=== PATIENT | female | born 1965 | race Caucasian/White ===

== ENCOUNTER 2018-10-08 02:39 | Inpatient (IN) | payer OTHER ==
--- NOTE | 2018-10-08 02:48 | EDPHY ---
H & P Time Seen by Provider: 10/08/18 02:48 HPI/ROS: HPI CHIEF COMPLAINT: Shortness of breath, cough. HISTORY OF PRESENT ILLNESS: 52-year-old female, homeless, presents emergency room with cough, shortness of breath and wheezing. Patient reports she has been sick for over 24 hr with worsening cough, as well as productive sputum yellow in nature. Denies fever. Denies chest pain. Does complain of shortness of breath. Also wheezing. She does smoke tobacco less than a pack per day. She reports that her shortness of breath and cough got worse today. This what prompted to come to the emergency room. Upon arrival to the emergency room is noted she has room air saturation of 85%. Past Medical History: Denies medical history Past Surgical History: Denies surgical history Social History: Smokes tobacco daily. Denies illicit drugs or alcohol. She is homeless. Family History: Noncontributory. ROS REVIEW OF SYSTEMS: 10 Systems were reviewed and negative with the exception of the elements mentioned in the history of present illness. Exam Constitutional nontoxic, triage nursing summary reviewed, vital signs reviewed , awake/alert. Hypoxic at triage 85%. Eyes normal conjunctivae and sclera, EOMI, PERRLA. HENT normal inspection, atraumatic, moist mucus membranes, no epistaxis, neck supple/ no meningismus, no raccoon eyes. Respiratory decreased breath sounds bilaterally, bronchitis ache breath sounds on exam, bronchitic cough also crackles at the right lung base. Cardiovascular rate normal, regular rhythm, no murmur, no edema, distal pulses normal. Gastrointestinal soft, non-tender, no rebound, no guarding, normal bowel sounds, no distension, no pulsatile mass. Genitourinary no CVA tenderness. Musculoskeletal no midline vertebral tenderness, full range of motion, no calf swelling, no tenderness of extremities, no meningismus, good pulses, neurovascularly intact. Skin pink, warm, & dry, no rash, skin atraumatic. Neurologic awake, alert and oriented x 3, AAOx3, moves all 4 extremities equally, motor intact, sensory intact, CN II-XII intact, normal cerebellar, normal vision, normal speech. Psychiatric normal mood/affect. Heme/Lymph/Immune no lymphadenopathy. Differential diagnosis includes but is not limited to: Pneumonia, viral syndrome, influenza, URI, ACS, atypical chest pain, pneumothorax, pneumonia, pulmonary embolism, aortic dissection, congestive heart failure, tumor, musculoskeletal pain, esophageal pain, GERD, peptic ulcer disease, pancreatitis Medical Decision Making: Plan for this patient two view chest x-ray, DuoNeb breathing treatment, IV fluid bolus, check influenza respiratory panel, basic blood work. Supplemental oxygen, equipment monitor phototypesetting. Re-evaluation: Chest x-ray reviewed shows cardiomegaly, haziness left lower lobe. Obscuring the left heart border. Concerning for possible pneumonia versus viral pneumonia Blood work reviewed. Vital signs reviewed she was hypoxic 85% upon arrival. She has a cough with productive sputum. She is afebrile here. Due to the hypoxia, and most likely infiltrate seen on chest x-ray will give IV Levaquin. Blood cultures ordered. Respiratory panel ordered. Plan for admission the hospital. 5:09 a.m. Consult the hospitalist service Dr. Walter. agrees to admit. Patient updated need for admission for hypoxia possible pneumonia. Source: Patient Constitutional: Initial Vital Signs Temperature (C) 36.7 C 10/08/18 02:50 Heart Rate 66 10/08/18 02:50 Respiratory Rate 16 10/08/18 02:50 Blood Pressure 114/64 10/08/18 02:50 O2 Sat (%) 85 L 10/08/18 02:50 O2 Delivery Mode Nasal Cannula O2 (L/minute) 2 Allergies/Adverse Reactions: Penicillins Allergy (Verified 10/08/18 02:49) Home Medications: Medication Instructions Recorded NK [No Known Home Meds] 10/08/18 Medical Decision Making - Data Points Laboratory Results: Laboratory Results 10/08/18 03:05 10/08/18 03:05 Microbiology Results: MICROBIOLOGY 10/08/18 03:05 Nasal, Sinus - Swab Respiratory Panel (PCR) - Final Influenza Virus Type A 2009 H1 Medications Given: Albuterol/Ipratropium (Duoneb) 3 ml IH Q6HRS PRN PRN Reason: Short of Breath/Dyspnea Stop: 04/06/19 07:22 Last Admin: 10/08/18 10:44 Dose: 3 ml Sodium Chloride (Ns) 1,000 mls @ 100 mls/hr IV CONT VERA Stop: 04/06/19 05:59 Last Admin: 10/09/18 01:34 Dose: 1,000 mls Lorazepam (Ativan Injection) 1 mg IVP Q4HRS PRN PRN Reason: Anxiety, Unable to Take PO Stop: 04/06/19 15:25 Last Admin: 10/08/18 15:41 Dose: 1 mg Oseltamivir Phosphate (Tamiflu) 75 mg PO BIDMEAL VERA Stop: 10/13/18 08:01 Last Admin: 10/08/18 17:51 Dose: 75 mg Prednisone (Prednisone) 60 mg PO DAILY VERA Stop: 04/06/19 08:59 Last Admin: 10/08/18 08:43 Dose: 60 mg Discontinued Medications Albuterol/Ipratropium (Duoneb) 3 ml IH EDNOW ONE Stop: 10/08/18 02:55 Last Admin: 10/08/18 03:23 Dose: 3 ml Sodium Chloride (Ns) 1,000 mls @ 0 mls/hr IV ONCE ONE; Wide Open PRN Reason: Protocol Stop: 10/08/18 02:55 Last Admin: 10/08/18 03:22 Dose: 1,000 mls Levofloxacin/Dextrose (Levaquin 750 Mg (Premix)) 150 mls @ 100 mls/hr IV EDNOW ONE PRN Reason: Protocol Stop: 10/08/18 05:45 Last Admin: 10/08/18 04:30 Dose: 150 mls Point of Care Test Results: Chemistry 10/08/18 03:41 POC Troponin I 0.01 ng/mL ng/mL (0.00-0.08) Departure - Departure Disposition: [facility] Inpatient Acute Clinical Impression: Hypoxia Pneumonia Qualifiers: Pneumonia type: due to unspecified organism Laterality: left Lung location: lower lobe of lung Qualified Code(s): J18.1 - Lobar pneumonia, unspecified organism Condition: Fair
[2018-10-08] MEDS ORDERED: NS 1,000 ML IV ONE (02:54)
[2018-10-08] MEDS ORDERED: IPRATROPIUM/ALBUTEROL 3 ML DEYVIAL IH ONE (02:54)
[2018-10-08 03:30] LABS: PLATELET COUNT 216 10^3/uL (150-400)
[2018-10-08 03:39] LABS: INR 0.95 (0.83-1.16); PROTIME(PATIENT) 12.9 SEC (12.0-15.0)
[2018-10-08] MEDS ORDERED: ACETAMINOPHEN 325 MG TAB PO PRN (05:46)
[2018-10-08] MEDS ORDERED: ONDANSETRON DISINTEGRATING 4 MG TAB PO PRN (05:46)
[2018-10-08] MEDS ORDERED: ONDANSETRON 4 MG/2 ML VIAL IVP PRN (05:46)
[2018-10-08] MEDS ORDERED: GUAIFENESIN/DM 10 ML UDCUP PO PRN (05:48)
[2018-10-08] MEDS: NS 1,000 ML IV SCH ×2 (06:35→15:46)
--- NOTE | 2018-10-08 07:40 | PDGENHP ---
History and Physical - Chief Complaint Shortness of breath and cough - History of Present Illness Source-patient provides history appears reliable. EMR was reviewed and case discussed with ED provider. HPI-this is a pleasant 52-year-old female with no significant past medical history presents emergency department today from a assisted with complaints shortness of breath, cough, wheezing. Patient reports that her symptoms started in the within the last 24 hr. She has pot productive cough of yellow sputum. She has had nasal congestion and sore throat. She doses some nausea without any vomiting. No diarrhea. One sick contact known. Patient denies any fevers but she has been experiencing some chills. She has been complaining of shortness of breath and some wheezing. She does smoke less than half pack per day for some time. History Information - Allergies/Home Medication List Allergies/Adverse Reactions: Penicillins Allergy (Verified 10/08/18 02:49) Home Medications: NK [No Known Home Meds] 10/08/18 [Last Taken Unknown] I have personally reviewed and updated: family history, medical history, social history, surgical history - Past Medical History no pertinent PMH - Surgical History Reports: no pertinent surgical hx - Family History Additional family history: Patient does not know family history. - Social History Smoking Status: Current every day smoker Tobacco Use: Cigarettes (Less than half a pack per day.) Alcohol Use: None Drug Use: None Additional social history: Patient is homeless and residing in a assisted. Cor status-full. Review of Systems Review of Systems: ROS: 10pt was reviewed & negative except for what was stated in HPI & below Constitutional: Reports: chills. Denies: fever EENMT: Reports: nose congestion, sore throat, other (Patient reports her voice is gone) Cardiac: Reports: no symptoms Respiratory: Reports: cough, shortness of breath, wheezing Gastrointestinal: Reports: abdominal distention, nausea. Denies: vomitting, abdominal pain, diarrhea Genitourinary: Reports: no symptoms Muscolosketal: Reports: no symptoms Skin: Reports: no symptoms Neurological: Reports: no symptoms Hematologic/Lymphatic: Reports: no symptoms Physical Exam Physical Exam: Selected Entries 10/08/18 02:50 Blood Pressure Automatic Method Heart Rate 66 Respiratory 16 Rate O2 Sat (%) 85 L Temperature (C) 36.7 C Blood Pressure 114/64 Mean Arterial 80 Pressure (MAP) O2 Delivery Room Air Mode Temperature Oral Source Temp Pulse Resp BP Pulse Ox 36.9 C 97 16 98/59 L 97 10/08/18 06:21 10/08/18 06:21 10/08/18 06:21 10/08/18 06:21 10/08/18 06:21 O2 (L/minute) 2 Constitutional: no apparent distress, unkempt (Disheveled), other (NAD. Patient is sitting up in bed awake. Appears quite fatigued and ill but nontoxic.) Eyes: PERRL (Slightly decreased reactivity light bilaterally but symmetric.), anicteric sclera, EOMI, No scleral injection Ears, Nose, Mouth, Throat: dry mucous membranes, other (No nasal discharge. Nasal cannula in place.) Cardiovascular: regular rate and rhythym, systolic murmur (2/6 systolic murmur.) , No pulses symmetric bilaterally (difficult to palpate pulses.), No edema Respiratory: no respiratory distress, reduced air movement, expiratory wheeze, inspiratory crackles, No clear to auscultation, No respiratory distress Gastrointestinal: soft, non-tender abdomen, no palpable masses, distension ( Distended but full.), other (Hypoactive bowel sounds.) Genitourinary: no bladder tenderness, No chandler in urethra Skin: warm, normal color, no rashes or abrasions, other (Patient with the abrasion to her left lateral medial metatarsal. She also has some discoloration on the 3rd toe of her right foot is bandaged. No open sore appreciated.) Musculoskeletal: No generalized weakness (Patient is able to sit up independently. She moves all extremities. Grossly normal muscular exam) Neurologic: AAOx3, sensation intact bilaterally, other (Nonfocal exam.), No facial droop Psychiatric: interacting appropriately, not encephalopathic, thought process linear, anxious, other (Patient does not use her voice. She reports that is hoarse. She mouth all her words. Occasional whisper. She is anxious. She is able to answer and ask questions with paper and pen.) Lab Data & Imaging Review 10/08/18 03:05 10/08/18 03:05 WBC 7.06 10^3/uL (3.80-9.50) 10/08/18 03:05 RBC 4.11 10^6/uL (4.18-5.33) L 10/08/18 03:05 Hgb 11.7 g/dL (12.6-16.3) L 10/08/18 03:05 Hct 36.2 % (38.0-47.0) L 10/08/18 03:05 MCV 88.1 fL (81.5-99.8) 10/08/18 03:05 MCH 28.5 pg (27.9-34.1) 10/08/18 03:05 MCHC 32.3 g/dL (32.4-36.7) L 10/08/18 03:05 RDW 15.3 % (11.5-15.2) H 10/08/18 03:05 Plt Count 216 10^3/uL (150-400) 10/08/18 03:05 MPV 11.2 fL (8.7-11.7) 10/08/18 03:05 Neut % (Auto) 59.4 % (39.3-74.2) 10/08/18 03:05 Lymph % (Auto) 29.0 % (15.0-45.0) 10/08/18 03:05 [place] % (Auto) 9.9 % (4.5-13.0) 10/08/18 03:05 Eos % (Auto) 1.1 % (0.6-7.6) 10/08/18 03:05 Baso % (Auto) 0.3 % (0.3-1.7) 10/08/18 03:05 Nucleat RBC Rel Count 0.0 % (0.0-0.2) 10/08/18 03:05 Absolute Neuts (auto) 4.19 10^3/uL (1.70-6.50) 10/08/18 03:05 Absolute Lymphs (auto) 2.05 10^3/uL (1.00-3.00) 10/08/18 03:05 Absolute Monos (auto) 0.70 10^3/uL (0.30-0.80) 10/08/18 03:05 Absolute Eos (auto) 0.08 10^3/uL (0.03-0.40) 10/08/18 03:05 Absolute Basos (auto) 0.02 10^3/uL (0.02-0.10) 10/08/18 03:05 Absolute Nucleated RBC 0.00 10^3/uL (0-0.01) 10/08/18 03:05 Immature Gran % 0.3 % (0.0-1.1) 10/08/18 03:05 Immature Gran # 0.02 10^3/uL (0.00-0.10) 10/08/18 03:05 PT 12.9 SEC (12.0-15.0) 10/08/18 03:05 INR 0.95 (0.83-1.16) 10/08/18 03:05 APTT 27.4 SEC (23.0-38.0) 10/08/18 03:05 VBG Lactic Acid 0.8 mmol/L (0.7-2.1) 10/08/18 03:15 Sodium 138 mEq/L (135-145) 10/08/18 03:05 Potassium 3.9 mEq/L (3.5-5.2) 10/08/18 03:05 Chloride 106 mEq/L (97-110) 10/08/18 03:05 Carbon Dioxide 29 mEq/l (22-31) 10/08/18 03:05 Anion Gap 3 mEq/L (6-14) L 10/08/18 03:05 BUN 9 mg/dL (7-23) 10/08/18 03:05 Creatinine 0.5 mg/dL (0.6-1.0) L 10/08/18 03:05 Estimated GFR > 60 10/08/18 03:05 Glucose 123 mg/dL (70-100) H 10/08/18 03:05 Calcium 8.2 mg/dL (8.5-10.4) L 10/08/18 03:05 Total Bilirubin 0.2 mg/dL (0.1-1.4) 10/08/18 03:05 Conjugated Bilirubin 0.2 mg/dL (0.0-0.5) 10/08/18 03:05 Unconjugated Bilirubin 0.0 mg/dL (0.0-1.1) 10/08/18 03:05 AST 21 IU/L (14-46) 10/08/18 03:05 ALT 33 IU/L (9-52) 10/08/18 03:05 Alkaline Phosphatase 66 IU/L (38-126) 10/08/18 03:05 POC Troponin I 0.01 ng/mL (0.00-0.08) 10/08/18 03:41 NT-Pro-B Natriuret Pep 102 pg/mL (0-125) 10/08/18 03:05 Total Protein 5.8 g/dL (6.3-8.2) L 10/08/18 03:05 Albumin 3.3 g/dL (3.5-5.0) L 10/08/18 03:05 Assessment & Plan Assessment: Pleasant 52-year-old female without significant past medical history presents emergency department from assisted with complaints of cough, wheezing, and shortness of breath. Pneumonia (Acute) - patient with URI type symptoms. She likely has some underlying COPD. Chest x-ray shows some haziness in the left lung but also some bronchitis. She has been started on Levaquin which would be appropriate with suspected history of COPD for empiric coverage if this is infected viral. A respiratory panel is pending. Hypoxia (Acute) - patient with saturations in the 80s on arrival on room air. Supplemental oxygen. Continue with steroids antibiotics and nebulizer treatments. Titrate O2 to maintain sats greater than 90. Hypotension - patient presented she was hypertensive however this time of my interview patient's blood pressure systolic in the 90s. He did have some difficulties palpating her pedal pulses but they are warm and she denies any pain. Continue with IV fluid hydration. Will have nursing staff Doppler her pedal pulses. Wheezing - again suspected COPD underlying with history of tobacco use. Patient will receive nebulizers p.r.n. And started on steroids this morning. Anemia-suspect some component of chronic disease. Patient had notes that she has intermittent access to food. No evidence of active bleeding at this time. Will continue monitor. FEN - continue IV fluids as noted above. Advance diet to regular. Electrolytes replacement p.r.n. PPX-SCDs at this time if patient's pedal pulses are intact with Doppler and improved with improvement in her blood pressure. Patient reports that she would prefer not to get Lovenox in this is been discontinued. Cor status-full Disposition-patient admitted to observation status on med surg floor.
[2018-10-08] MEDS: predniSONE 20 MG TAB PO SCH (08:43)
[2018-10-08] MEDS ORDERED: ENOXAPARIN 40 MG/0.4 ML SYR SC SCH (09:00)
[2018-10-08] MEDS: IPRATROPIUM/ALBUTEROL 3 ML DEYVIAL IH PRN (10:44)
--- NOTE | 2018-10-08 12:43 | HOSPPROG ---
Hospitalist Progress Note Assessment/Plan: Jovita 52-year-old female without significant past medical history presents emergency department from [facility] with complaints of cough, wheezing, and shortness of breath. First encounter, chart reviewed. Pneumonia (Acute) -patient with URI type symptoms -She likely has some underlying COPD -Chest x-ray shows some haziness in the left lung but also some bronchitis -She has been started on Levaquin Influenza A -start tamiflu -precautions Hypoxia (Acute) - patient with saturations in the 80s on arrival on room air -Supplemental oxygen -Continue with steroids antibiotics and nebulizer treatments -Titrate O2 to maintain sats greater than 90. Hypotension - patient presented she was hypertensive -blood pressure systolic in the 90s. -Continue with IV fluid hydration Wheezing - again suspected COPD underlying with history of tobacco use - Patient will receive nebulizers p.r.n - started on steroids Anemia -suspect some component of chronic disease -Patient had notes that she has intermittent access to food -No evidence of active bleeding at this time -Will continue monitor Pulses -doppler FEN - continue IV fluids as noted above. Advance diet to regular. Electrolytes replacement p.r.n. PPX-SCDs at this time Patient reports that she would prefer not to get Lovenox Cor status-full Disposition- -change to inpt status -needs further care in hospital setting -still requiring significant O2 Subjective: Feeling terrible. Still coughing. Still SOB. Objective: Vital Signs Temp Pulse Resp BP Pulse Ox 36.7 C 63 16 130/62 H 95 10/08/18 11:33 10/08/18 11:33 10/08/18 11:33 10/08/18 11:33 10/08/18 11:33 10/07/18 10/08/18 10/09/18 05:59 05:59 05:59 Intake Total 1250 Balance 1250 PT 12.9 SEC (12.0-15.0) 10/08/18 03:05 INR 0.95 (0.83-1.16) 10/08/18 03:05 - Physical Exam Constitutional: appears nourished, chronically ill appearing, obese Eyes: PERRL, anicteric sclera, EOMI Ears, Nose, Mouth, Throat: moist mucous membranes, hearing normal, ears appear normal Cardiovascular: regular rate and rhythym, edema, No JVD Respiratory: no respiratory distress, reduced air movement, expiratory wheeze Gastrointestinal: normoactive bowel sounds, No tenderness, No ascites Skin: warm, normal color, No mottled Musculoskeletal: normal joint ROM, no joint effusions, generalized weakness Neurologic: AAOx3 Psychiatric: not anxious, not encephalopathic, thought process linear ICD10 Worksheet Patient Problems: Problems Problem Status Onset Pneumonia Acute Hypoxia Acute
--- NOTE | 2018-10-08 13:33 | PDMN ---
Medical Necessity Medical necessity: [facility]CG M282 c PNA-- hypoxemia with RA sats 85% 90-95 2 % - pt presents with cough, wheezing, SOB, chills, CXR shows - haziness in L lung with bronchitis, underlying COPD?, pt also with hypotension , anemia, - pt lives at senior living, further monitoring and tx. needed
--- NOTE | 2018-10-08 15:08 | ASMTCMCOM ---
CM Note CM Note Notes: Met w/pt, she does not speak but will mouthe words and write on a dry erase board. CM asked if she stays at the [facility], pt became fairly paranoid. She did not want CM to speak out loud, concerns for people following her. She want to get out of [place] but writes that trains or buses are not safe. CM unsure of pt's needs at dc but anticipate she will be independent. DC Plan: Independent/ Prison? Date Signed: 10/08/2018 03:07 PM Electronically Signed By:Miguelina Lanier RN
[2018-10-08] MEDS: LORazepam 2 MG/ML INJ IVP PRN (15:41)
[2018-10-08] MEDS: OSELTAMIVIR PHOSPHATE 75 MG CAP PO SCH (17:51)
[2018-10-09] MEDS: NS 1,000 ML IV SCH ×2 (01:34→12:59)
[2018-10-09] MEDS: IPRATROPIUM/ALBUTEROL 3 ML DEYVIAL IH PRN ×2 (05:34→17:00)
[2018-10-09] MEDS: LORazepam 2 MG/ML INJ IVP PRN ×2 (07:35→11:54)
[2018-10-09] MEDS: OSELTAMIVIR PHOSPHATE 75 MG CAP PO SCH ×2 (08:35→17:24)
[2018-10-09] MEDS: predniSONE 20 MG TAB PO SCH (08:35)
[2018-10-09] MEDS: IBUPROFEN 200 MG TAB PO PRN (12:32)
--- NOTE | 2018-10-09 13:25 | HOSPPROG ---
Hospitalist Progress Note Assessment/Plan: Marsha is a 52-year-old female without significant past medical history presents emergency department from care home with complaints of cough, wheezing, and shortness of breath. First encounter, chart reviewed. *Pneumonia (Acute) vs bronchitis -patient with URI type symptoms -She likely has some underlying COPD -Levaquin *Influenza A -start Tamiflu -precautions *paranoid behaviors -dc prednisone which may be exacerbating this -will ask Miguelina Jefferson to see *Hypoxia (Acute) -resolved, on room air *Hypotension -resolved -stop iv fluids *Anemia -suspect some component of chronic disease *homelessness *plan: will ask Miguelina Jefferson to see, Marsha is insisting that she be placed on ativan IV, says she has severe anxiety. She said her doctor in [place] has been prescribing this but is unable to tell me when she last saw her. She speaks only in a whisper, says this is her baseline, says she has a cochlear implant, communicates only by writing on a whiteboard and insists that I don't read out loud what she has written. She is not trustful of CM and is very concerned if I repeat anything she has written. Hopefully can dc tomorrow. Subjective: Marsha says she feels minimally better. Objective: Vital Signs Temp Pulse Resp BP Pulse Ox 36.7 C 65 18 128/55 H 97 10/09/18 08:00 10/09/18 08:00 10/09/18 08:00 10/09/18 08:00 10/09/18 08:00 10/08/18 10/09/18 10/10/18 05:59 05:59 05:59 Intake Total 2150 Output Total 1250 Balance 900 PT 12.9 SEC (12.0-15.0) 10/08/18 03:05 INR 0.95 (0.83-1.16) 10/08/18 03:05 - Physical Exam Constitutional: obese, unkempt Eyes: PERRL Ears, Nose, Mouth, Throat: poor dentition Cardiovascular: regular rate and rhythym Respiratory: no respiratory distress, reduced air movement (bases, few rhonchii scattered) Skin: warm Musculoskeletal: full muscle strength Psychiatric: anxious, agitated ICD10 Worksheet Patient Problems: Problems Problem Status Onset Hypoxia Acute Pneumonia Acute
[2018-10-09] MEDS ORDERED: LORazepam 0.5 MG TAB PO PRN (14:11)
[2018-10-09] MEDS: LORazepam 1 MG TAB PO PRN ×2 (16:51→21:02)
[2018-10-10] MEDS: IPRATROPIUM/ALBUTEROL 3 ML DEYVIAL IH PRN ×3 (00:30→17:25)
[2018-10-10] MEDS: BENZONATATE 100 MG CAP PO PRN ×2 (02:35→21:41)
[2018-10-10] MEDS: OSELTAMIVIR PHOSPHATE 75 MG CAP PO SCH ×2 (07:43→18:22)
[2018-10-10] MEDS: LORazepam 1 MG TAB PO PRN ×2 (07:44→21:45)
--- NOTE | 2018-10-10 13:37 | HOSPPROG ---
Hospitalist Progress Note Assessment/Plan: Marsha is a 52-year-old female without significant past medical history presents emergency department from long term with complaints of cough, wheezing, and shortness of breath. *Pneumonia (Acute) vs bronchitis -patient with URI type symptoms -She likely has some underlying COPD -Levaquin *Influenza A -Tamiflu -precautions *paranoid behaviors -dc prednisone which may be exacerbating this -she is calmer today but remains very paranoid *Hypoxia (Acute) -resolved, on room air *Hypotension -resolved -stop iv fluids *Anemia -suspect some component of chronic disease *homelessness *plan: Have reached out to [facility] to evaluate. Marsha is extremely paranoid, won't use the phone out of fear someone is listening, wants curtains closed, the door needs to be shut. Yesterday couldn't speak but now is speaking fine, when trying to evaluate her, she is tearful, pulls the mask over her face. She keeps telling me and the RN that we don't understand the situation. She is medically ready for dc. She says she is unable to go to the long term "it's very dangerous there", Says she has to be placed in a safe house. Feels betrayed by Case Management, wants a social research assistant to see. She has lived in several different states, has insurance, says she lost her wallet at [facility]. Patient is medically stable for dc but needs oral abx and Tamiflu. Subjective: Marsha isn't c/o pain. Says she has more coughing w activity and feels like she is walking on mushrooms. Objective: Vital Signs Temp Pulse Resp BP Pulse Ox 37.6 C 65 14 161/70 H 91 L 10/10/18 11:31 10/10/18 11:31 10/10/18 11:31 10/10/18 11:31 10/10/18 11:31 10/09/18 10/10/18 10/11/18 05:59 05:59 05:59 Intake Total 2150 360 960 Output Total 1250 1000 1200 Balance 900 -640 -240 PT 12.9 SEC (12.0-15.0) 10/08/18 03:05 INR 0.95 (0.83-1.16) 01/02/19 03:05 - Physical Exam Constitutional: appears nourished, not in pain, obese, unkempt Eyes: PERRL Ears, Nose, Mouth, Throat: hearing normal Respiratory: no respiratory distress Skin: warm Musculoskeletal: full muscle strength Psychiatric: other (paranoid) ICD10 Worksheet Patient Problems: Problems Problem Status Onset Hypoxia Acute Pneumonia Acute
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
--- NOTE | 2018-10-10 16:21 | ASMTTCLDSP ---
TLC Discharge Disposition Disposition: Answers: Admit Disposition Notes: Notes: In consultation with [facility] Hospitalist , Carolina James MD, and on-call psychiatriatric clinician Homar Singh APN, both concurred that pt does appear to meet 27-65 criteria requiring psychiatric hospitalization as pt does appear to be gravely disabled due to a mental illness condition. Discharge Concerns/Recommendations: Notes: Case mgmt at will attempt to seek a safe dispo and transport to [place] while providing a safe place and effort to stabilize the pt. For inpatient Homar Singh APN admission, the following psychiatrist agreed to accept patient for admission to [facility] ([facility]): Type of Hold: Answers: M1/72-hour Hold Hold initiated by: Answers: Other Notes: Hospitalist Physician Date Signed: 10/10/2018 04:18 PM Electronically Signed By:Murray Barnes
[2018-10-10] MEDS ORDERED: LORazepam 0.5 MG TAB PO PRN (16:30)
[2018-10-10] MEDS: IBUPROFEN 200 MG TAB PO PRN (16:55)
[2018-10-10] MEDS ORDERED: LORazepam 1 MG TAB PO ONE (16:58)
--- NOTE | 2018-10-10 17:31 | ASMTCMCOM ---
CM Note CM Note Notes: Pt is now on a M1 hold, transportation to [address] [place] [address] has been scheduled for 9pm. Date Signed: 10/10/2018 05:31 PM Electronically Signed By:Miguelina Lanier RN
--- NOTE | 2018-10-10 17:33 | ASMTLACE ---
TULIOE Length of stay for Answers: 2 days current admission Acuity / Level of Answers: Yes Care: Did the patient have an inpatient admission? # of Emergency department Answers: 1-2 visits in the last 6 months Social determinants Answers: Homelessness (street, long-term) Mental health diagnosis (anxiety, depression, pers onality disorders, etc.) Lack of community resources and/or lack of social support (no pcp, lives alone, transportation, trell d) Score: 16 Date Signed: 10/10/2018 05:32 PM Electronically Signed By:Miguelina Lanier RN
--- NOTE | 2018-10-10 17:40 | ASMTDCNOTE ---
Case Management Discharge Discharge Order Complete? Answers: Yes Patient to Obtain Answers: Other Notes: [facility] Medications Transportation Arranged Answers: [facility] will Pick (Date 10/10/2018 09:00 PM & Time) MARINO Complete Answers: Yes Faxed Final Orders Answers: Yes Discharge Comments Notes: D/w [facility] and Murray from [facility], pt will be transferred to [address] [place] [address], she is on an M1 hold. Marino signed and copy in chart. Date Signed: 10/10/2018 05:39 PM Electronically Signed By:Miguelina Lanier RN
--- NOTE | 2018-10-10 19:25 | ASMTLCPROG ---
Notes Note: Notes: PT was accepted at [facility] however N2N occured and transport was being setup. However pt's droplet precautions have discouraged the [facility] psychiatrist managing the unit from accepting the PT as the unit is not setup to handle that if the PT is not willing to keep her mask on. PT has now been declined at [address] Dr. Florez wishes to suspend / lift the hold. Unfortunately as part of the admission to [facility] pt has to be DC'd from the medical floor. PT has already been DC'd with the [facility] instrutions for her respitory illness. Dr. James feels very concerned about the pt and feels the pt is unable to care for self due her paranoia and beliefs that an organization if following her, listening to her and subjeting her to trauma. Pt reported to [facility] after being accepted to 3n she had previously on [facility], and [facility] and [facility] and that if 3 is like [facility] she is not going. Dr. James believed pt is a flight risk and pt's verbal confirmation confrimed this. Once the hold is lifted PT will flee to the street and has every legal right to do so. Dr. James reported to [facility] she is deferring to psychiatries expertise, thus if Dr. Florez wishes to lift the hold PT is free to leave. There is no current dispo though at this time and it is unclear where pt will stay or get transport. [facility] is contacting case mgmt tree trimming supervisor Vy Rawls and will page the Hosptialist testing consultant to discuss if we will readmit the PT or DC to the street, or to the ER on an M1 Hold while [facility] seeks placement elsewhere. Date Signed: 10/10/2018 07:24 PM Electronically Signed By:Murray Barnes
--- NOTE | 2018-10-11 04:36 | GDS ---
DISCHARGE DIAGNOSES: 1. Pneumonia versus bronchitis. She has upper respiratory symptoms. 2. Influenza A. 3. Paranoid behaviors. 4. Acute hypoxemic respiratory failure. 5. Hypertension. 6. Anemia. CONSULTATION: Murray Barnes with [facility]. Briefly, the patient is a 52-year-old homeless woman who presented from the detention with complaints of shortness of breath, cough, and wheezing. She had nasal congestion and sore throat. She also smokes half a pack a day. She was admitted, and it was noted that she had influenza. She has been treated with Tamiflu. In addition, there was concern that she could have a pneumonia, but it appears to be more like a bronchitis. She has been treated with Levaquin. During her stay, the patient has been making multiple paranoid statements and is very fearful that people are following her and watching her. She keeps the curtains closed in the room. She was evaluated by [facility], who commented that she is gravely disabled. She will go to [facility] this evening to hopefully help stabilize her. Please see their detailed report written today, October 10. She is medically stable for discharge. She has been on room air for the last 2 days. HOSPITAL COURSE: 1. Bronchitis versus pneumonia: She has more upper respiratory symptoms, which have resolved. Improved. 2. Influenza A: Tamiflu. She has 6 more doses. 3. Paranoid behaviors: Her prednisone was discontinued, which seemed to exacerbate it. She is calmer today, but very paranoid. 4. Hypoxemia, resolved. 5. Hypertension, resolved. 6. Anemia, has a component of chronic disease. 7. Homelessness: [facility] will try to help arrange her to follow up with family members who live in another state. DISCHARGE CONDITION: Stable. Blood pressure is 159/73, heart rate is 60, respiratory rate is 16, O2 sats on room air 94%, temperature is 36.7 Celsius. MEDICATIONS AT DISCHARGE: Please see the EMR. DISCHARGE INSTRUCTIONS: She will need 6 more doses of Tamiflu. She will need 4 more days of Levaquin. The patient is to wear a mask when she is not in her room and the staff needs to wear a mask while taking care of her. Greater than 30 minutes discharging and coordinating the patient's care and having her transported to [facility]. /[id number]/MODL MTDD
[2018-10-11] MEDS: OSELTAMIVIR PHOSPHATE 75 MG CAP PO SCH ×2 (07:12→18:06)
[2018-10-11] MEDS: BENZONATATE 100 MG CAP PO PRN ×2 (07:12→16:13)
[2018-10-11] MEDS: LORazepam 1 MG TAB PO PRN ×4 (07:40→22:19)
[2018-10-11] MEDS: IBUPROFEN 200 MG TAB PO PRN ×3 (08:47→22:20)
[2018-10-11] MEDS: IPRATROPIUM/ALBUTEROL 3 ML DEYVIAL IH PRN (09:15)
--- NOTE | 2018-10-11 10:49 | HOSPPROG ---
Hospitalist Progress Note Assessment/Plan: Marsha is a 52-year-old female without significant past medical history presents emergency department from residential with complaints of cough, wheezing, and shortness of breath. *Pneumonia (Acute) vs bronchitis -patient with URI type symptoms -She likely has some underlying COPD -Levaquin -much improved *Influenza A -Tamiflu -precautions *paranoid behaviors -dc prednisone which may be exacerbating this -she is calmer today but remains very paranoid, I still believe she is gravely disabled *Hypoxia (Acute) -resolved, on room air *Hypotension -resolved -stop iv fluids *Anemia -suspect some component of chronic disease *homelessness *plan: TLC to hopefully see again, she is on a M1 hold. She is calm but is requiring ativan. She continues to be very paranoid, when talking w her, everything is top secret. She needs a secure web site on [employer] that no-one can trace to her, she has relatives in the [place] area, but only can be contacted between 6-7 pm. She does not have their numbers. She said she is in danger and nothing can be shared. I, also, reviewed her care w ID, will finish Tamiflu here and then tx to . Subjective: Marsha is feeling overall better. Objective: Vital Signs Temp Pulse Resp BP Pulse Ox 36.8 C 58 L 20 168/69 H 92 10/11/18 07:47 10/11/18 07:47 10/11/18 07:47 10/11/18 07:47 10/11/18 07:47 10/10/18 10/11/18 10/12/18 05:59 05:59 05:59 Intake Total 360 2100 Output Total 1000 2200 Balance -640 -100 PT 12.9 SEC (12.0-15.0) 10/08/18 03:05 INR 0.95 (0.83-1.16) 10/08/18 03:05 - Physical Exam Constitutional: appears nourished, not in pain, obese Eyes: PERRL Ears, Nose, Mouth, Throat: hearing normal Cardiovascular: regular rate and rhythym Respiratory: no respiratory distress, rhonchi (left base) Skin: warm Musculoskeletal: full muscle strength Psychiatric: other (paranoid) ICD10 Worksheet Patient Problems: Problems Problem Status Onset Hypoxia Acute Pneumonia Acute
--- NOTE | 2018-10-11 17:05 | ASMTCMCOM ---
CM Note CM Note Notes: Reviewed chart. Per ICU rounds, pt tested positive for the flu. She is currently on droplet precautions and has two more days of Tamiflu remaining. Per Chinyere James NP and SEAN Pulliam, pt will need to complete Tamiflu prior to being accepted to [facility]. Pt's final dose will be Saturday10/13/18 in the morning. Pt will remain on an M1 hold until that time and then will transfer to [facility] if additional psychiatric observation and treatment is still indicated. CM will continue to follow. Discharge Plan: To be determined, likely [facility] when medically stable Date Signed: 10/11/2018 05:05 PM Electronically Signed By:Orly Dooley RN
[2018-10-12] MEDS: LORazepam 1 MG TAB PO PRN ×5 (03:44→21:48)
[2018-10-12] MEDS: BENZONATATE 100 MG CAP PO PRN ×2 (03:44→17:46)
[2018-10-12] MEDS: IBUPROFEN 200 MG TAB PO PRN ×3 (07:16→19:16)
[2018-10-12] MEDS: OSELTAMIVIR PHOSPHATE 75 MG CAP PO SCH ×2 (07:16→17:46)
[2018-10-12] MEDS: IPRATROPIUM/ALBUTEROL 3 ML DEYVIAL IH PRN ×2 (13:33→20:40)
--- NOTE | 2018-10-12 14:22 | HOSPPROG ---
Hospitalist Progress Note Assessment/Plan: Marsha is a 52-year-old female without significant past medical history presents emergency department from half-way with complaints of cough, wheezing, and shortness of breath. *Pneumonia (Acute) vs bronchitis -patient with URI type symptoms -She likely has some underlying COPD -Levaquin -much improved *Influenza A -Tamiflu -precautions -needs two more doses and then can tx to tomorrow *paranoid behaviors -dc prednisone which may be exacerbating this -she is calmer today but remains very paranoid, I still believe she is gravely disabled -she believes internationally someone is after her, believes that she was poisoned by food in [place], feels safe her for now *Hypoxia (Acute) -resolved, on room air *Hypotension -resolved -stop iv fluids *Anemia -suspect some component of chronic disease *homelessness *plan: dc tomorrow after last Tamiflu dose, she says [facility] has her wallet and her credit cards, attempted to call their lost and found, but closed today, will call tomorrow. Subjective: Marsha said she is feeling better, very fearful some one or a group of people want to harm her. Objective: Vital Signs Temp Pulse Resp BP Pulse Ox 36.7 C 64 18 129/59 H 94 10/12/18 07:12 10/12/18 07:12 10/12/18 07:12 10/12/18 07:12 10/12/18 07:12 10/11/18 10/12/18 10/13/18 05:59 05:59 05:59 Intake Total 2100 600 Output Total 2200 Balance -100 600 PT 12.9 SEC (12.0-15.0) 10/08/18 03:05 INR 0.95 (0.83-1.16) 10/08/18 03:05 - Physical Exam Constitutional: no apparent distress, appears nourished, not in pain Eyes: PERRL Ears, Nose, Mouth, Throat: hearing normal Cardiovascular: regular rate and rhythym Respiratory: no respiratory distress, rhonchi (bases but much improved, not coughin as much) Gastrointestinal: normoactive bowel sounds Skin: warm Musculoskeletal: full muscle strength Psychiatric: other (alert but paranoid) ICD10 Worksheet Patient Problems: Problems Problem Status Onset Hypoxia Acute Pneumonia Acute
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
[2018-10-12] MEDS ORDERED: GABAPENTIN 100 MG CAP PO ONE (20:32)
[2018-10-13] MEDS: LORazepam 1 MG TAB PO PRN ×2 (05:18→09:18)
[2018-10-13] MEDS: IBUPROFEN 200 MG TAB PO PRN ×2 (05:18→11:22)
[2018-10-13] MEDS: OSELTAMIVIR PHOSPHATE 75 MG CAP PO SCH (07:51)
[2018-10-13 08:00] VITALS: BP 120/56
--- NOTE | 2018-10-13 09:08 | HOSPPROG ---
Hospitalist Progress Note Assessment/Plan: Marsha is a 52-year-old female without significant past medical history presents emergency department from halfway with complaints of cough, wheezing, and shortness of breath. *Pneumonia (Acute) vs bronchitis -patient with URI type symptoms -She likely has some underlying COPD -much improved, dc levaquin *Influenza A -Tamiflu -precautions -full treatment *paranoid behaviors -dc prednisone which may be exacerbating this -she is calmer today but remains very paranoid, I still believe she is gravely disabled fro her mental illness *Hypoxia (Acute) -resolved, on room air *Hypotension -resolved -stop iv fluids *Anemia -suspect some component of chronic disease *homelessness *plan: dc to , appreciate their involvement in helping Marsha Subjective: Marsha said she is feeling much better today. Objective: Vital Signs Temp Pulse Resp BP Pulse Ox 36.7 C 71 16 120/56 L 93 10/13/18 07:55 10/13/18 07:55 10/13/18 07:55 10/13/18 07:55 10/13/18 07:55 10/12/18 10/13/18 10/14/18 05:59 05:59 05:59 Intake Total 2300 Balance 2300 PT 12.9 SEC (12.0-15.0) 10/08/18 03:05 INR 0.95 (0.83-1.16) 10/08/18 03:05 - Physical Exam Constitutional: no apparent distress, appears nourished, not in pain Eyes: PERRL Ears, Nose, Mouth, Throat: hearing normal Cardiovascular: regular rate and rhythym Respiratory: no respiratory distress, expiratory wheeze (few scattered,lung sounds much improved) Gastrointestinal: normoactive bowel sounds Skin: warm Musculoskeletal: full muscle strength Psychiatric: other (alert) ICD10 Worksheet Patient Problems: Problems Problem Status Onset Hypoxia Acute Pneumonia Acute
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
--- NOTE | 2018-10-13 09:33 | GDS ---
Please see the discharge summary already done on 10/10/2018. No changes in this documentation, excep t that the patient has been treated for the flu and will be going to Behavioral Health today. DISCHARGE CONDITION: Stable. Blood pressure is 120/56, heart rate of 71, respiratory rate of 16. O2 saturation on room air 93%. Temperature is 36.7 Celsius. /[id number]/MODL
[2018-10-13] MEDS: IPRATROPIUM/ALBUTEROL 3 ML DEYVIAL IH PRN (09:39)
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
== END 2018-10-13 12:00 | DRG 202 ==
LOC: F3E 06:08 → OBSVTOIN 12:46 → EEVIPCON 12:46 → F2N 10-10 21:20
PROVIDERS: ADMIT Family Medicine; ATTEND Internal Medicine
DX: J40 Bronchitis, not specified as acute or chronic (principal); J11.1 Influenza due to unidentified influenza virus with other respiratory manifestations; J96.01 Acute respiratory failure with hypoxia; F22 Delusional disorders; J44.9 Chronic obstructive pulmonary disease, unspecified; F17.210 Nicotine dependence, cigarettes, uncomplicated; E86.0 Dehydration; D64.9 Anemia, unspecified; I10 Essential (primary) hypertension; Z59.0 Homelessness; Z88.0 Allergy status to penicillin
CPT/HCPCS: 84484-ER; 96365; J1956; J2060; J7512

== ENCOUNTER 2018-10-13 12:42 | Inpatient (IN) | payer OTHER ==
[2018-10-13] MEDS ORDERED: MAGNESIUM HYDROXIDE 30 ML UDCUP PO PRN (13:13)
[2018-10-13] MEDS ORDERED: NICOTINE POLACRILEX 2 MG GUM B PRN (13:13)
[2018-10-13] MEDS ORDERED: OLANZapine DISINTEGR 10 MG TAB PO PRN (13:13)
[2018-10-13] MEDS ORDERED: MAG HYDROX/AL HYDROX/SIMETH 30 ML UDCUP PO PRN (13:13)
[2018-10-13] MEDS ORDERED: ACETAMINOPHEN 325 MG TAB PO PRN (13:13)
[2018-10-13] MEDS: IBUPROFEN 600 MG TAB PO PRN (14:15)
[2018-10-13] MEDS: LORazepam 0.5 MG TAB PO PRN ×2 (14:16→20:16)
[2018-10-13] MEDS: ALBUTEROL 60 PUFFS/8 GM MDI IH PRN (20:04)
[2018-10-14] MEDS: LORazepam 0.5 MG TAB PO PRN ×2 (04:12→10:28)
--- NOTE | 2018-10-14 07:35 | ASMTBHMTP ---
Master Treatment Plan Master Treatment Plan Answers: Impaired Reality for: Date: 10/13/2018 Diagnosis on Admission: Unspecified Schizophrenia Spectrum and Other Psychotic Disorder 298.9 F29 Expected length of stay: 3-5 days Reason for admission: Notes: Per Report: Pt is a 52 yoa female, currently homeless or transient individual. She would like to get back to [place], [place] where she feels safe. Transfer from ICU Patient's stated presenting problems: Notes: I was sick and had the flu, they gave me meds that caused me not to be ok.* Patient's goals for treatment: Notes: to be safe and make a plan to go some where next. Patient's strengths: Notes: none reported Identify supports outside of hospital: Notes: none reported Discharge criteria: Notes: Psychotic symptoms will be reduced or eliminated with return to baseline functioning in affect, thinking and behavior prior to discharge. Initial disposition plan/considerations: Notes: Go to [facility]. Master Treatment Plan Required Signatures Psychiatrist signature: Answers: Psychiatrist: RN on-shift signature: Answers: RN: Patient signature: Answers: Patient: Date Signed: 10/14/2018 07:35 AM Electronically Signed By:Tad Godwin
[2018-10-14] MEDS ORDERED: QUEtiapine FUMARATE 50 MG TAB PO SCH (10:00)
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
[2018-10-14] MEDS: IBUPROFEN 600 MG TAB PO PRN (10:29)
[2018-10-14] MEDS: ALBUTEROL 60 PUFFS/8 GM MDI IH PRN (11:07)
--- NOTE | 2018-10-14 13:57 | ASMTCMCOM ---
CM Note CM Note Notes: Client was able to participate in treatment team meeting today. Client still presents as paranoid, unclean and sick. Client is reevaluating her discharge options after hospitalization including poss. bus ticket to [place], [place]. Date Signed: 10/14/2018 01:57 PM Electronically Signed By:Tad Godwin
[2018-10-14] MEDS: QUEtiapine FUMARATE 50 MG TAB PO PRN (15:04)
[2018-10-14] MEDS ORDERED: QUEtiapine FUMARATE 100 MG TAB PO SCH (21:00)
[2018-10-15] MEDS ORDERED: QUEtiapine FUMARATE 100 MG TAB PO SCH ×2 (06:39→11:08)
--- NOTE | 2018-10-15 08:24 | SOAPPROG ---
SOAP Progress Note Assessment/Plan: Assessment: Unspecified Psychosis. Homelessness. R/O Schizophrenia. Slight improvement noted. (see subjective/objective note). Patient could benefit from continued inpatient hospitalization for crisis stabilization, safety, and medication evaluation. Patient likely discharge tomorrow with plan to travel to [place], [place] to be close to her support system. Plan: 1. Psychotropic medications: After reviewing options, risks, and benefits patient agrees to continue current medications with following changes: increase Seroquel to 200 mg po QHS. No other medication changes at this time as more time is needed to determine ongoing tolerability and efficacy. Plan is to continue to observe patient for response and side effects from medications, and ongoing monitoring and evaluation. 2. Review with patient informed consent and recommendations for psychotropic medication treatment listed below 3. Labs: no additional labs at this time 4. Therapy: continue milieu and group therapy 5. Further investigation including gathering information from patients relatives and review of past case records to inform treatment plan. 6. Safety/Wellness plan and follow-up outpatient appointments to be established prior to discharge. Next steps are for patient to meet with healthcare network consultant to plan a safe discharge plan and establish outpatient services for ongoing treatment. 7. Confer with inpatient treatment team regarding treatment plan. 8. Psychosocial stressors addressed through lining caser 9. Legal status: M1 10. Consider discharge on if patient is in stable condition, safe, and has a safe discharge plan. PSYCHOTROPIC MEDICATION TREATMENT INFORMED CONSENT and RECOMMENDATIONS: Review nature of condition, diagnosis, and prognosis. Review nature and purpose of psychotropic medication treatment. Review type of psychotropic medications being ordered. Review risk and benefits of psychotropic medication treatment. Review probable length of time patient will need to take medications. Review risk and benefits of not undergoing psychotropic medication treatment. Review alternative treatments to psychotropic medications. Review psychotropic medications contraindications, drug-drug interactions, side effects, and importance of reporting any side effects to a psychiatric provider or nurse during inpatient hospitalization, and upon discharge to patients psychiatric outpatient provider, primary care provider, or other health client care manager. Review importance of asking a nurse, psychiatric provider, or primary care provider any questions or problems concerning the psychotropic medications. Verify patient understands the information that has been provided, and understands, accepts, and agrees to psychotropic medications. Review patients safety plan and importance of patient to report to staff while hospitalized if patient is ever a danger to self/others, or unable to care for self, and upon discharge, the importance for patient to contact [facility] or [facility], or go to the nearest emergency room, if patient is ever a danger to self/others, or unable to care for self. Recommend that upon discharge patient establish medication management treatment with a psychiatric provider, establishes routine therapy appointments, and follow-up with primary care provider. Verify patient understands and agrees to these recommendations. 10/15/18 08:23 Subjective: Following up with patient for evaluation of psychosis and safety. Patient reports, "I have decided to go to [place], and would like to discharge tomorrow. I am feeling much better. Still feel as though people are following me, but I can deal with it." Patient expresses the following psychiatric symptoms none. Patient reports taking medications as prescribed, and describes response to medications as good. Patient does not report undesirable side effects from the medications, and agrees to continue current medications. Patient agrees to increase Seroquel to 200 mg po QHS. Patient describes getting 8 hours of sleep, and reports she feels rested today. Objective: Vital Signs Temp Pulse Resp BP Pulse Ox 36.8 C 64 15 126/90 H 92 10/15/18 06:00 10/15/18 06:00 10/15/18 06:00 10/15/18 06:00 10/15/18 06:00 NURSING REPORT: Consulted with nursing for update on patients progress in treatment. Nurses report patient is engaged in treatment, is attending groups, slept 8 hours, expresses the following psychiatric symptoms: delusions regarding being followed by people, exhibits the following psychiatric symptoms : delusional, is eating all meals, is agreeable to medications and taking as prescribed with no report of side effects, with no s/s of EPS/akathisia, and denies SI/HI, denies A/V hallucinations, and denies delusions. MSE: The patient is a well-nourished transgender female to male looking stated chronological age. Attire is appropriate dress is casual. Grooming status is inappropriate and disheveled. Ambulation is independent. Gait is normal and coordinated. Posture is normal and relaxed. Eye contact is inappropriate and staring. Motor activity is appropriate with purposeful, organized, coordinated movements; with no involuntary movements. Attitude is fairly cooperative, defensive and guarded at times. Patient appears distracted and does not relate well to this interviewer. Language production is spontaneous. R/R/V normal. Articulation is clear. Patient reports mood as okay with constricted and flat affect. Patients thought process is non-linear and illogical, with loose associations, tangential thought. Patient does not report suicidal/homicidal thoughts, ideas, or plans. Patient denies auditory, visual hallucinations. Patient reports delusions. Patient does not appear to be attending to internal stimuli. Patients attention and concentration are poor. Patient is oriented to person, place, time. Patients insight is poor. Patients judgment is poor. - Time Spent With Patient Time Spent With Patient: 15 minutes, met with patient individually. - Pending Discharge Pending Discharge Within 24 Hours: Yes Pending Discharge Within 48 Hours: No Pending Discharge Date: 10/16/18 Pending Discharge Time: 11:00 ICD10 Worksheet Patient Problems: Problems Problem Status Onset Homelessness Acute Unspecified psychosis Acute Hypoxia Acute Pneumonia Acute
[2018-10-15] MEDS: ALBUTEROL 60 PUFFS/8 GM MDI IH PRN ×2 (09:13→14:21)
[2018-10-15] MEDS: LORazepam 0.5 MG TAB PO PRN ×2 (09:13→19:07)
[2018-10-15] MEDS: IBUPROFEN 600 MG TAB PO PRN ×2 (09:13→15:29)
[2018-10-15] MEDS: QUEtiapine FUMARATE 50 MG TAB PO PRN (13:38)
[2018-10-16] MEDS: ALBUTEROL 60 PUFFS/8 GM MDI IH PRN (06:20)
[2018-10-16] MEDS: IBUPROFEN 600 MG TAB PO PRN (06:21)
[2018-10-16 06:39] VITALS: BP 152/75
[2018-10-16] MEDS: LORazepam 0.5 MG TAB PO PRN (09:15)
--- NOTE | 2018-10-16 09:17 | ASMTBHDC ---
Notes Note: Notes: CC was able to provide client with follow up resources in [place], [place]. As well as through [facility] treatment team provide client with a greyhound bus ticket to return to her support system in [facility]. Follow up with: [facility] [address] [place] [address] Hours: Opens 6:30PM [facility] [address] [place] [address] Date Signed: 10/16/2018 09:15 AM Electronically Signed By:Tad Godwin
--- NOTE | 2018-10-16 11:06 | BDS ---
REASON FOR ADMISSION: From the hospitalist progress note dated 10/12/2018, patient very paranoid, believes someone internationally is after her. Patient believed that she was poisoned by food in [place], very fearful that someone or a group of people want to harm her. Patient was admitted involuntarily on an M1 hold due to being gravely disabled due to a mental illness. Patient was admitted for safety, crisis stabilization, and medication evaluation. ADMITTING DIAGNOSES: 1. Unspecified psychosis. 2. Homelessness. 3. Rule out schizophrenia. ADMISSION PHYSICAL EXAM: The patient was seen on 10/08/2018, and also on 2018, for history and physical and hospital progress note. The patient was medically cleared for inpatient psychiatric hospitalization and treatment. For further details, please refer to history and physical dated 10/08/2018, and hospitalist progress note dated 10/13/2018. ADMISSION LABS: 1. CBC from 10/08, within normal limits, except red blood cells were low at 4.11, hemoglobin was low at 11.7, hematocrit low at 36.2, MCHC low at 32.3, RDW elevated at 15.3. 2. Coagulation: PT, INR, and APTT within normal limits. 3. Blood gas VBG: Lactic acid within normal limits. 4. BMP within normal limits, except anion gap was low at 3, creatinine was low at 0.5, glucose was elevated at 123. 5. Hemoglobin A1c from 10/13/2018, was elevated at 6.9. 6. Estimated average glucose was elevated at 151. 7. Calcium from 10/08/2018, was low at 8.2. 8. Liver function from 10/08/2018, within normal limits, except total protein was low at 5.8, albumin was low at 3.3. 9. Lipid panel from 10/13/2018, within normal limits, except cholesterol was low at 87, LDL cholesterol calculated was low at 43, non-HDL cholesterol was low at 53, and HDL cholesterol was low at 34. MAJOR PROCEDURES/TESTS: None. HOSPITAL COURSE: The most prominent symptoms and behaviors while patient was here were reports of paranoid delusions regarding a people or a group of people following the patient. The patient reported feeling concern for her safety. Patient provided no other details regarding these people who were following her. Target symptoms during hospitalization, psychosis, notably paranoid delusions. Treatment modalities utilized were milieu and group therapy. Seroquel 100 mg p.o. q.h.s. Was started to target psychosis symptoms, was tolerated with no report of side effects, and with good response. Patient has improved considerably with no signs of psychiatric symptoms and no psychiatric symptoms expressed at time of discharge. The patient reports she has improved since admission, states to be in stable condition, feels safe to discharge, and she contracts for safety. Patient's response to treatment was good. There were no adverse or unexpected results of treatment. The patient was safe throughout her stay, active in treatment, engaged in groups, and was appropriate with staff and other patients. Patient met with the treatment team prior to discharge to assess readiness to discharge and review discharge plan. The treatment team consensus is the patient is in stable condition, has a safe discharge plan, and is ready to discharge today CONDITION AT DISCHARGE: Patient is in stable condition and is no longer a danger to self or others, and is not gravely disabled due to mental illness. Patient is no longer in need of inpatient level of care, and can be safely and effectively treated within the community. The patients level of risk at time of discharge is low. MSE: The patient is casually dressed and with good hygiene , and looks stated age. Patient is sitting, posture is upright, and position is relaxed. Patient appears awake, alert, and responds appropriately and reasonably during interview. Patient is engaged, relates well to interviewer, and emotional facial expression is appropriate to situation and changes appropriately with topic. Patient is cooperative, makes comfortable eye contact , and movements are voluntary, deliberate, coordinated, and smooth and even with no inappropriate movements. Patient makes laryngeal sounds effortlessly and shares conversation appropriately; pace of conversation is appropriate, and stream of talking is fluent; articulation is clear and understandable; word choice is effortless and appropriate for education level; completes sentences, occasionally pausing to think; rate and volume are appropriate for interview and setting. Patient reports mood as euthymic. Patients affect is stable with full variable range, congruent with mood, and appropriate to speech and circumstances. Patient has linear and logical thinking, with no loose associations, tangential thought, thought blocking, concrete thinking, or any other signs of formal thought disorder. Patient denies suicidal and homicidal ideation, and denies hallucinations and delusions. Patient appears to be a reliable historian with sound judgement and good insight into current condition. Patient has no apparent dysfunction in recent or remote memory noted , and no evidence of gross cognitive dysfunction noted at any point during the interview. DISCHARGE DIAGNOSES: 1. Schizophrenia. 2. Homelessness. CURRENT MEDICATIONS: After reviewing options, risks, and benefits with the patient, patient agrees to continue Seroquel 100 mg p.o. q.h.s. The patient request a prescription for this medication at time of discharge. A prescription for 30 days for Seroquel 100 mg p.o. q.h.s. is provided. The prescription is reviewed with the patient at time of discharge to ensure accuracy and patient understanding. DISPOSITION: Patient left hospital independently and voluntarily, and plans to take the [facility] bus today to travel to [place], [place], where she reports her support system is located. FOLLOWUP: drug abuse program coordinator reports the appropriate outpatient follow-up services have been established and outpatient appointments have been scheduled. The patient received written instructions with times and dates of outpatient follow-up appointments. The following follow-up recommendations were provided to the patient at discharge: Continue psychotropic medications as prescribed and attend appointments as scheduled. Report any side effects to a psychiatric outpatient provider, a primary care provider, or other health care tech. Address any questions or problems concerning the psychotropic medications with a psychiatric outpatient provider, a primary care provider, or other health care tech. Contact [facility] or [facility], or go to the nearest emergency room, if you are ever a danger to yourself/others, or unable to care for yourself. As soon as possible, establish a routine medication management treatment with a psychiatric provider, establish routine therapy appointments, and follow-up with a primary care provider. LEGAL COURSE: Patient was admitted on an M1 hold, became voluntary during her stay, and discharged today independently and voluntarily. ATTITUDE AT TIME OF DISCHARGE: The patients attitude was positive at time of discharge, and patient reports looking forward to discharging today. The patient reports she feels safe to discharge, is no longer a danger to herself or others, is in stable condition, and contracts for safety. Patient states she will continue medications as prescribed, and establish medication management treatment with an outpatient provider after discharge. Patient reports she understands the information that has been provided to her, and she understands, accepts, and agrees to psychotropic medications. Patient describes internal protective factors as the coping skills she has learned while hospitalized here, and she plans to continue to practice these coping skills after discharge. PENDING LABS AND RADIOLOGY STUDIES: There were no pending labs or studies at time. ADVANCE DIRECTIVES: There were no advance directives on file, and patient was full code during this hospitalization. The following psychotropic medication treatment informed consent and recommendations were provided to the patient at time of discharge. Patient reports she understands, accepts, and agrees to the information that has been provided. PSYCHOTROPIC MEDICATION TREATMENT INFORMED CONSENT and RECOMMENDATIONS: Review nature of condition, diagnosis, and prognosis. Review nature and purpose of psychotropic medication treatment. Review type of psychotropic medications being prescribed. Review risk and benefits of psychotropic medication treatment. Review probable length of time will need to take medications. Review risk and benefits of not undergoing psychotropic medication treatment. Review alternative treatments to psychotropic medications. Review psychotropic medications contraindications, side effects, and importance of reporting any side effects to a psychiatric provider, primary care provider, or other health care tech. Review importance of her asking a psychiatric provider or primary care provider any questions or problems concerning the psychotropic medications. Review importance of reporting to a psychiatric provider, primary care provider, or other health care tech if she plans to or becomes . Review safety plan and the importance to contact [facility] or [facility] , or go to the nearest emergency room, if ever a danger to yourself/others, or unable to care for yourself. Recommend upon discharge to establish routine medication management treatment with a psychiatric provider, establish routine therapy appointments, and follow-up with a primary care provider. Verify patient understands, accepts, and agrees to the information that has been provided. /[id number]/[id number]
== END 2018-10-16 09:45 | disposition home or self-care (01) | DRG 885 ==
LOC: BBEH 12:42
PROVIDERS: ADMIT Psychiatry & Neurology Psychiatry; ATTEND Psychiatry & Neurology Psychiatry
DX: F20.0 Paranoid schizophrenia (principal); Z59.0 Homelessness